=== PATIENT | female | born 2000 | race Caucasian/White ===

== ENCOUNTER 2021-03-21 08:23 | Emergency (ER) | payer BC, SELFPAY ==
[2021-03-21 09:31] VITALS: BP 110/71; PULSE 67; RESP 20; TEMP 36.5; O2SAT 100; BMI 29.9
[2021-03-21 11:48] VITALS: PULSE 72; O2SAT 100
[2021-03-21 11:49] VITALS: BP 126/75; PULSE 73; O2SAT 100
[2021-03-21 12:00] VITALS: PULSE 68; O2SAT 100
[2021-03-21 12:01] VITALS: BP 108/66; PULSE 70; O2SAT 100
[2021-03-21 12:30] VITALS: BP 102/56; PULSE 80; O2SAT 100
--- NOTE | 2021-03-21 13:30 | PC.NURSE ---
Patient has been concerned about herpes since november unable to get tested at that time. Told to be tested when she has another lesion. Patient denies sexual activity or unprotected sex since november. Tearful and worried
--- NOTE | 2021-03-21 13:37 | ED_ITS ---
HPI - Female Genitourinary <Baljit Barrera PA-C - Last Filed: 03/21/21 13:47> General Chief complaint: Urogenital-Female Stated complaint: Sores in genital areas Time Seen by Provider: 03/21/21 12:01 Source: patient Mode of arrival: Ambulatory Limitations: no limitations History of Present Illness HPI Narrative: 20-year-old female with past medical history seizures presents to the ED with 2 days of a general sore. Patient states that she had a prior episode of similar genital sores 4 months ago, and that the prior episode had multiple lesions. Patient was diagnosed with herpes, but was not tested for it. Patient states that this time around, she only has 1 sore on the labia, that it is very painful to touch. Patient describes it as a burning pain. Patient endorses unprotected sex about 4 months ago, spoke with her partners, who all denied any genital infections. Patient denies fever, chills, nausea, vomiting, vaginal discharge, foul smelling discharge. Patient has an IUD in. Related Data Previous Rx's Medication Instructions Recorded acyclovir 800 mg tablet 800 mg PO BID 5 Days #10 tab 03/21/21 Allergies Allergy/AdvReac Type Severity Reaction Status Date / Time No Known Drug Allergies Allergy Verified 03/21/21 09:30 Review of Systems <Baljit Barrera PA-C - Last Filed: 03/21/21 13:47> Constitutional Constitutional: Denies chills, Denies fatigue, Denies fever(s), Denies frequent falls, Denies lethargy and Denies weakness Eyes Eyes: Denies change in vision, Denies eye discharge, Denies irritation and Denies loss of vision ENT Ears, Nose, Mouth, and Throat: Denies change in voice, Denies dizziness, Denies neck pain, Denies sore throat and Denies throat swelling Cardiovascular Cardiovascular: Denies chest pain, Denies irregular heart rhythm, Denies lightheadedness, Denies palpitations, Denies dyspnea, Denies dyspnea on exertion and Denies orthopnea Respiratory Respiratory: Denies cough, Denies dyspnea, Denies dyspnea on exertion and Denies wheezing Gastrointestinal Gastrointestinal: Denies abdominal pain, Denies change in bowel habits, Denies diarrhea, Denies nausea and Denies vomiting Genitourinary Comments: Genital sore Musculoskeletal Musculoskeletal: Denies neck pain and Denies numbness Integumentary/Breasts Skin/Breast: Denies pruritus, Denies erythema, Denies rash and Denies wounds Neurologic Neurologic: Denies behavioral changes, Denies confusion, Denies dizziness, Denies frequent falls, Denies loss of vision, Denies numbness and Denies weakness Psychiatric Psychiatric: Denies anxiety, Denies behavioral changes, Denies confusion, Denies depression, Denies homicidal ideation and Denies suicidal ideation Endocrine Endocrine: Denies fatigue, Denies flushing and Denies palpitations Hematologic/Lymphatic Hematologic/Lymphatic: Denies easy bruising Allergic/Immunologic Allergic/Immunologic: Denies urticaria, Denies throat swelling and Denies wheezing Patient History <Baljit Barrera PA-C - Last Filed: 03/21/21 13:47> Medical History Seizures (~2019) Surgical History alcohol intake frequency: 0-2 drinks per day Substance Use Type: marijuana Exam <Baljit Barrera PA-C - Last Filed: 03/21/21 13:47> Initial Vital Signs Initial Vital Signs: Vital Signs Temperature 97.7 F 03/21/21 09:31 Pulse Rate 67 03/21/21 09:31 Respiratory Rate 20 03/21/21 09:31 Blood Pressure 110/71 03/21/21 09:31 Pulse Oximetry 100 03/21/21 09:31 Const General: cooperative HENMT Head: normocephalic and atraumatic Ears: external ears normal and TM's normal bilaterally Nose: external nose normal and No nasal discharge Face and sinus: sinuses nontender, face symmetric, no sinus tenderness and No dry mucous membranes Mouth: oral mucosae normal and moist mucous membranes Teeth and gingiva: dentition normal Throat: tonsils normal and uvula midline Eyes General: appearance normal, both eyes and all related structures Eyelids: eyelids normal Conjunctivae: conjunctivae normal Sclera: sclerae normal Pupils: PERRL EOM: EOM intact bilaterally Neck Neck: normal visual inspection, trachea midline, No lymphadenopathy, No midline deformity and No JVD Lymphatic: No lymphedema Chest Chest: normal inspection of the chest Resp Effort & Inspection: normal respiratory effort, able to speak in complete sentences, no respiratory distress and no use of accessory muscles Auscultation: clear to auscultation bilaterally, no rales, no rhonchi and no wheezes Cardio Rate: regular rate Rhythm: regular rhythm Heart Sounds: no click, no gallops, no murmurs and no rubs Pulses: normal peripheral pulses GI Inspection: non-distended Palpation: soft, no hepatosplenomegaly, No guarding, No pulsatile mass and No tender Auscultation: normal bowel sounds Other: Abdomen is soft, nondistended, nontender to palpation. General: bimanual renal exam normal bilaterally Speculum Exam - Cervix: normal appearance of the cervix Other: Solitary genital lesion on upper labia, ulcerated, depressed, tender to palpation. No discharge. Vaginal exam shows normal vagina without lacerations. Cervix normal, closed with IUD strings visualized. Normal white physiologic discharge. Bimanual exam with no cervical motion tenderness, adnexal masses or adnexal tednerness. Back/Spine/Pelvis Back: No CVA tenderness Cervical Spine: cervical ROM normal and No pain with cervical ROM Thoracic/Lumbar Spine: thoracic and lumbar spine normal to inspection Skin General: no rashes or lesions noted, No jaundice and No petechiae Neuro General: patient alert, patient oriented x3, gait normal and no focal motor deficits Speech: speech normal Extrem General: full ROM, no clubbing, cyanosis or edema, no pedal edema and no calf tenderness Psych Appearance: well kempt Mental Status: mental status grossly normal Attitude: cooperative Thought Content: normal and suicidality Judgment: judgment good <Tabby Medrano DO - Last Filed: 03/25/21 08:41> Initial Vital Signs Initial Vital Signs: Vital Signs Temperature 97.7 F 03/21/21 09:31 Pulse Rate 67 03/21/21 09:31 Respiratory Rate 20 03/21/21 09:31 Blood Pressure 110/71 03/21/21 09:31 Pulse Oximetry 100 03/21/21 09:31 Course <Baljit Barrera PA-C - Last Filed: 03/21/21 13:47> Orders Ordered: ED Orders 03/21/21 13:28 Herpes Simp Virus 1&2 IgG Stat Treponema pallidum Antibodies Stat 03/21/21 13:29 HIV 1 & 2 Ab/Ag 4th Gen Combo Stat 03/21/21 13:30 Chlamydia/Gonoc/Myco Genital Stat Vital Signs Vital signs: Vital Signs - 8 hr 03/21/21 09:31 03/21/21 11:48 03/21/21 11:49 Temperature 97.7 F Pulse Rate 67 72 73 Respiratory Rate 20 Blood Pressure 110/71 126/75 Pulse Oximetry 100 100 100 03/21/21 12:00 03/21/21 12:01 03/21/21 12:30 Temperature Pulse Rate 68 70 80 Respiratory Rate Blood Pressure 108/66 102/56 L Pulse Oximetry 100 100 100 <Tabby Medrano DO - Last Filed: 03/25/21 08:41> Orders Ordered: ED Orders 03/21/21 13:28 Herpes Simp Virus 1&2 IgG Stat Treponema pallidum Antibodies Stat 03/21/21 13:29 HIV 1 & 2 Ab/Ag 4th Gen Combo Stat 03/21/21 13:30 Chlamydia/Gonoc/Myco Genital Stat Vital Signs Vital signs: Vital Signs - 8 hr 03/21/21 09:31 03/21/21 11:48 03/21/21 11:49 Temperature 97.7 F Pulse Rate 67 72 73 Respiratory Rate 20 Blood Pressure 110/71 126/75 Pulse Oximetry 100 100 100 03/21/21 12:00 03/21/21 12:01 03/21/21 12:30 Temperature Pulse Rate 68 70 80 Respiratory Rate Blood Pressure 108/66 102/56 L Pulse Oximetry 100 100 100 MDM - Female Genitourinary <Baljit Barrear PA-C - Last Filed: 03/21/21 13:47> Medical Records Attestation: I reviewed the patient's medical records. Lab Data Attestation: I reviewed the patient's lab results. Lab results narrative: HCG negative, UA negative Labs: Lab Results 03/21/21 03/21/21 03/21/21 Range/Units 13:38 13:52 13:52 Treponema pallidum Ab Non reactive (Non Reactive) C.trachomatis Ampl DNA Negative (Negative) HSV I IgG Ab (Blot) < 0.91 (0.00-0.90) index HSV II IgG Ab (Blot) 6.43 H (0.00-0.90) index HIV 1&2 Ab/P24 Ag 4thGn (NEGATIVE) M. genitalium (PCR) Negative (Negative) N.gonorrhoeae Ampl DNA Negative (Negative) 03/21/21 Range/Units 13:52 Treponema pallidum Ab (Non Reactive) C.trachomatis Ampl DNA (Negative) HSV I IgG Ab (Blot) (0.00-0.90) index HSV II IgG Ab (Blot) (0.00-0.90) index HIV 1&2 Ab/P24 Ag 4thGn Negative (NEGATIVE) M. genitalium (PCR) (Negative) N.gonorrhoeae Ampl DNA (Negative) Point of Care Testing Test Results Negative Urine Dip Bedside Urine Glucose Negative Bedside Urine Bilirubin - Negative Bedside Urine Ketone - Negative Urine Specific [place] 1.025 Bedside Urine Occult Blood - Negative Bedside Urine pH 6.0 Bedside Urine Protein - Negative Bedside Urine Urobilinogen - Negative Bedside Urine Nitrite - Negative Bedside Urine Leukocytes - Negative Esterase MDM Narrative Medical decision making narrative: 20-year-old female with past medical history seizures presents to the ED with 2 days of a general sore. Patient states that she had a prior episode of similar genital sores 4 months ago, and that the prior episode had multiple lesions. Concern for genital herpes versus syphilis versus GC versus HIV. Will order tests for herpes, syphilis, HIV, GC. Will give a prescription for acyclovir, discharge home with PCP follow-up. Will call patient with results. <Tabby Medrano, - Last Filed: 03/25/21 08:41> Lab Data Labs: Lab Results 03/21/21 03/21/21 03/21/21 Range/Units 13:38 13:52 13:52 Treponema pallidum Ab Non reactive (Non Reactive) C.trachomatis Ampl DNA Negative (Negative) HSV I IgG Ab (Blot) < 0.91 (0.00-0.90) index HSV II IgG Ab (Blot) 6.43 H (0.00-0.90) index HIV 1&2 Ab/P24 Ag 4thGn (NEGATIVE) M. genitalium (PCR) Negative (Negative) N.gonorrhoeae Ampl DNA Negative (Negative) 03/21/21 Range/Units 13:52 Treponema pallidum Ab (Non Reactive) C.trachomatis Ampl DNA (Negative) HSV I IgG Ab (Blot) (0.00-0.90) index HSV II IgG Ab (Blot) (0.00-0.90) index HIV 1&2 Ab/P24 Ag 4thGn Negative (NEGATIVE) M. genitalium (PCR) (Negative) N.gonorrhoeae Ampl DNA (Negative) Point of Care Testing Test Results Negative Urine Dip Bedside Urine Glucose Negative Bedside Urine Bilirubin - Negative Bedside Urine Ketone - Negative Urine Specific [place] 1.025 Bedside Urine Occult Blood - Negative Bedside Urine pH 6.0 Bedside Urine Protein - Negative Bedside Urine Urobilinogen - Negative Bedside Urine Nitrite - Negative Bedside Urine Leukocytes - Negative Esterase Discharge Plan Departure Patient Disposition: Home Clinical Impression: Herpes genitalia Qualifiers: Herpes simplex infection site: vulvovaginitis Qualified Code(s): A60.04 - Herpesviral vulvovaginitis Instructions: Genital Herpes Activity Restrictions/Additional Instructions: You were evaluated for a genital sore today in the ED. Your symptoms are likely due to a herpes 2 infection. You can take acyclovir 800 mg by mouth every 12 hours for 5 days. Please avoid unprotected sexual intercourse. You were tested today for herpes, HIV, gonorrhea and chlamydia, syphilis. You will be notified of the results by phone. You can call us in the ED here if you do not hear within the next day. Follow-up with your primary care provider. Prescriptions: New acyclovir 800 mg tablet 800 mg PO BID 5 Days Qty: 10 RF: 0 <Tabby Medrano DO - Last Filed: 03/25/21 08:41> Cosign ED Attending Dave Attestation: I was immediately available in the department for consultation. Documentation has been reviewed. I agree with assessment and plan.
[2021-03-21 15:33] LABS: HIV 1 & 2 Ab/Ag 4th Gen Combo NEGATIVE (NEGATIVE)
[2021-03-22 07:44] LABS: HSV 2 IGG AB 6.43 index (0.00-0.90); HSV1IGG < 0.91 index (0.00-0.90)
[2021-03-22 15:15] LABS: Treponema pallidum Antibodies Non Reactive (Non Reactive)
[2021-03-23 09:08] LABS: Chlamydia trachomatis Negative (Negative); Mycoplasma genitalium Negative (Negative); Neisseria gonorrhoeae Negative (Negative)
== END 2021-03-21 13:54 | disposition home or self-care (01) ==
PROVIDERS: Emergency Provider Student in an Organized Health Care Education/Training Program
DX: A60.04 Herpesviral vulvovaginitis (principal)
CPT/HCPCS: 36415; 81003; 81025; 86695; 86696; 86780; 87389; 87491; 87563; 87591; 99283; 99284

== ENCOUNTER → 2021-08-11 17:29 | Outpatient (CLI) | payer BC, SELFPAY ==
[2021-08-11 20:28] LABS: COVID19 -Nasal RAPID Negative (Negative)
== END ==
PROVIDERS: Visit Provider Nurse Practitioner Family
DX: Z20.822 Contact with and (suspected) exposure to COVID-19 (principal); J02.9 Acute pharyngitis, unspecified
CPT/HCPCS: 87070; 87077; 87635

== ENCOUNTER 2021-08-23 11:54 | Emergency (ER) | payer OTHER, SELFPAY ==
[2021-08-23 12:02] VITALS: BP 129/78; PULSE 100; RESP 15; TEMP 36.9; O2SAT 97; BMI 28.3
--- NOTE | 2021-08-23 12:05 | DI.RAD.S_ITS ---
PROCEDURE: XR KNEE LT 3V INDICATIONS: knee pain after slipping TECHNIQUE: Three views of the knee were acquired. COMPARISON: None FINDINGS: Bones: No fractures or dislocations. No suspicious bony lesions. Soft tissues: No joint effusion. No suspicious soft tissue calcifications. IMPRESSION: Intact left knee. Dictated by: Carrol Zimmerman M.D. on 08/23/2021 at 12:52 Approved by: Carrol Zimmerman M.D. on 08/23/2021 at 12:54 PATIENT NAME: TIANNA MOBLEY : 2000 EXAM DATE: 08/23/2021 11:56 ORD. .: BAILEY JORDAN M.D. CC: ED TEMP MODALITY: CR PATIENT TYPE: ER CONTRAST MEDIA: STATION ID: [id number] FLUORO TIME: PATIENT NAME: TIANNA MOBLEYBarb : 2000 EXAM DATE: 08/23/2021 11:[address] BAILEY JORDAN M.D. CC: ED TEMP MODALITY: CR PATIENT TYPE: ER CONTRAST MEDIA: STATION ID: [id number] FLUORO TIME:
[2021-08-23 14:07] VITALS: BP 108/65; PULSE 64; O2SAT 100
--- NOTE | 2021-08-23 14:18 | ED.LOWEXIN ---
HPI - Extremity Injury (Lower) <Ezekiel Batres PA-C - Last Filed: 08/23/21 14:25> General Chief Complaint: Extremity Injury, Lower Stated Complaint: FELL AT WORK LEFT LEG AND LOWER BACK PAIN Time Seen by Provider: 08/23/21 14:14 Source: patient Mode of arrival: Ambulatory History of Present Illness HPI Narrative: Patient is a 21-year-old female who presents to the ED complaining of left knee pain. She works at [employer] and while she was at work she slipped on an olive and fell to the floor and she reports that her left knee twisted outward and she began to have severe pain in her left knee. She describes the pain to be both medially and laterally around the patella and that flexion and extension of the knee does increase the pain. She is able to weight bear although she is limited on toe-touch. No reported previous injury or previous issue with the knee. No other complaint reported incident happened earlier today Related Data Home Medications Medication Instructions Recorded Confirmed eslicarbazepine 400 mg tablet 400 mg PO DAILY 04/05/21 08/11/21 (Aptiom) levonorgestrel 20.1 mcg/24 hrs (6 INTRAUTERINE 04/05/21 08/11/21 yrs) 52 mg intrauterine device (Liletta) Previous Rx's Medication Instructions Recorded acyclovir 400 mg tablet 400 mg PO DAILY #90 tab 04/05/21 penicillin V potassium 500 mg 500 mg PO BID 10 Days #20 tab 08/15/21 tablet ibuprofen 800 mg tablet 800 mg PO Q8H PRN #21 tab 08/23/21 Allergies Allergy/AdvReac Type Severity Reaction Status Date / Time No Known Drug Allergies Allergy Verified 08/11/21 17:28 Review of Systems <Ezekiel Batres PA-C - Last Filed: 08/23/21 14:25> Review of Systems ROS Unobtainable: All systems reviewed & are unremarkable except as noted in HPI and below Constitutional Constitutional: Denies chills, Denies fatigue, Denies fever(s), Denies frequent falls, Denies lethargy and Denies weakness Eyes Eyes: Denies change in vision, Denies eye discharge, Denies irritation and Denies loss of vision ENT Ears, Nose, Mouth, and Throat: Denies change in voice, Denies dizziness, Denies neck pain, Denies sore throat and Denies throat swelling Cardiovascular Cardiovascular: Denies chest pain, Denies irregular heart rhythm, Denies lightheadedness, Denies palpitations, Denies dyspnea, Denies dyspnea on exertion and Denies orthopnea Respiratory Respiratory: Denies cough, Denies dyspnea, Denies dyspnea on exertion and Denies wheezing Gastrointestinal Gastrointestinal: Denies abdominal pain, Denies change in bowel habits, Denies diarrhea, Denies nausea and Denies vomiting Genitourinary Genitourinary: Denies hematuria, Denies flank pain, Denies urinary incontinence and Denies urinary urgency Musculoskeletal Musculoskeletal: Reports arthralgias, Denies back pain, Denies muscle weakness, Denies neck pain, Denies numbness and Denies tingling Integumentary/Breasts Skin/Breast: Denies pruritus, Denies erythema, Denies rash and Denies wounds Neurologic Neurologic: Denies behavioral changes, Denies confusion, Denies dizziness, Denies frequent falls, Denies loss of vision, Denies numbness, Denies tingling and Denies weakness Psychiatric Psychiatric: Denies anxiety, Denies behavioral changes, Denies confusion, Denies depression, Denies homicidal ideation and Denies suicidal ideation Endocrine Endocrine: Denies fatigue, Denies flushing and Denies palpitations Hematologic/Lymphatic Hematologic/Lymphatic: Denies easy bruising Allergic/Immunologic Allergic/Immunologic: Denies urticaria, Denies throat swelling and Denies wheezing Patient History <Ezekiel Batres PA-C - Last Filed: 08/23/21 14:25> Medical History Seizures (~2019) Surgical History Social History Smoking Status: Current every day smoker Smoking Status: Current every day smoker tobacco type: vaping alcohol intake frequency: 3 or more drinks per day Substance Use Type: marijuana Exam <Ezekiel Batres PA-C - Last Filed: 08/23/21 14:25> Initial Vital Signs Initial Vital Signs: Vital Signs Temperature 98.4 F 08/23/21 12:02 Pulse Rate 100 H 08/23/21 12:02 Respiratory Rate 15 08/23/21 12:02 Blood Pressure 129/78 08/23/21 12:02 Pulse Oximetry 97 08/23/21 12:02 Const General: cooperative, healthy appearing and comfortable Nutritional Appearance: average body habitus Extrem Left lower extremity: normal to inspection and knee Details: tenderness Location: of the medial joint line and of the lateral joint line and abnormal ROM Details: pain with active ROM <DO Sanju Lane Last Filed: 08/23/21 14:31> Initial Vital Signs Initial Vital Signs: Vital Signs Temperature 98.4 F 08/23/21 12:02 Pulse Rate 100 H 08/23/21 12:02 Respiratory Rate 15 08/23/21 12:02 Blood Pressure 129/78 08/23/21 12:02 Pulse Oximetry 97 08/23/21 12:02 Course <ELIANE Meng Last Filed: 08/23/21 14:25> Orders Ordered: ED Orders 08/23/21 12:05 XR knee LT 3V Stat Vital Signs Vital signs: Vital Signs - 8 hr 08/23/21 12:02 08/23/21 14:07 Temperature 98.4 F Pulse Rate 100 H 64 Respiratory Rate 15 Blood Pressure 129/78 108/65 Pulse Oximetry 97 [address] <[address] Last Filed: 08/23/21 14:31> Orders Ordered: ED Orders 08/23/21 12:05 XR knee LT 3V Stat Vital Signs Vital signs: Vital Signs - 8 hr 08/23/21 12:02 08/23/21 14:07 Temperature 98.4 F Pulse Rate 100 H 64 Respiratory Rate 15 Blood Pressure 129/78 108/65 Pulse Oximetry 97 100 MDM - Extremity Injury (Lower) <ELIANE Meng Last Filed: 08/23/21 14:25> Differential Diagnosis Differential diagnosis: Likely acute internal derangement of knee Imaging Data Extremity x-ray #1: Radiologist's Impression: [address] [address] XRay Report Signed Patient: Tianna Zayas MR#: [id number] : 2000 Acct:[id number] Age/Sex: 21 / F Date of Service: 08/23/21 Loc: ED Accession Number: [id number] ?? Procedure: XR knee LT 3V Ordering Provider: Rodney Phillip D.O. PROCEDURE:? XR KNEE LT 3V ? INDICATIONS:? knee pain after slipping ? TECHNIQUE:? Three views of the knee were acquired.? ? COMPARISON:? None ? FINDINGS:? ? Bones:? No fractures or dislocations.? No suspicious bony lesions.? ? Soft tissues:? No joint effusion.? No suspicious soft tissue calcifications.? ? ? IMPRESSION:? Intact left knee. ? ? Dictated by: Carrol Zimmerman M.D. on 08/23/2021 at 12:52? ? Approved by: Carrol Zimmerman M.D. on 08/23/2021 at 12:54 ? PATIENT NAME:? TIANNA ZAYASBarb :? 2000 MRN:? [id number] ACCOUNT #: ? [id number] ACCESSION#:? [id number] EXAM DATE: 08/23/2021 ? 11:56 ORD. DRBarb:? RODNEY PHILLIP M.D. CC: ED TEMP? ? MODALITY: CR PATIENT TYPE: ER CONTRAST MEDIA:?? STATION ID: [id number] FLUORO TIME:? PATIENT NAME:? TIANNA ZAYASBarb :? 2000 MRN:? [id number] ACCOUNT #: ? [id number] ACCESSION#:? [id number] EXAM DATE: 08/23/2021 ? 11:56 ORD. DRBarb:? RODNEY PHILLIP M.D. CC: ED TEMP? ? MODALITY: CR PATIENT TYPE: ER CONTRAST MEDIA:?? STATION ID: [id number] FLUORO TIME:? ? ? MDM Narrative Medical decision making narrative: Patient was evaluated today for left knee pain that resulted from a fall at work. Advised her that we ruled out fracture today with the x-ray however it is difficult to assess all the internal structures within the knee. I recommended ice and anti-inflammatories and weight-bearing as tolerated should be limited on her return to work based on her symptoms. She will be discharged home and she can follow up with her PCP Discharge Plan Departure Patient Disposition: Home Clinical Impression: Acute knee pain Instructions: DI for Knee Pain Activity Restrictions/Additional Instructions: You were seen today for pain in your left knee. The x-ray of the left knee did not show any evidence of fracture however we will have to monitor your symptoms at this point I would recommend rest ice take anti-inflammatories as prescribed and weight-bearing as tolerated. If your pain improves he may return to work without any restrictions if you have ongoing pain beyond a week I probably would recommend follow-up to have an MRI of her left knee. Thank you for the opportunity to treat today Prescriptions: New ibuprofen 800 mg tablet 800 mg PO Q8H PRN (Reason: pain) Qty: 21 0RF No Action penicillin V potassium 500 mg tablet 500 mg PO BID 10 Days Qty: 20 0RF Liletta 20.1 mcg/24 hrs (6 yrs) 52 mg intrauterine device intrauterine 0RF Aptiom 400 mg tablet 400 mg PO DAILY 0RF acyclovir 400 mg tablet 400 mg PO DAILY Qty: 90 3RF <Rodney Phillip, DO - Last Filed: 08/23/21 14:31> Cosign ED Attending Cosignature Attestation: Dr Phillip Co-Sign Statement: I was available for consultation during this patient's emergency department visit. This chart is signed by myself for administrative purposes only. I did not have direct contact with this patient during this visit. They were seen independently by the APC.
== END 2021-08-23 14:38 | disposition home or self-care (01) ==
PROVIDERS: Emergency Provider Physician Assistant
DX: M25.562 Pain in left knee (principal); F17.290 Nicotine dependence, other tobacco product, uncomplicated; W01.0XXA Fall on same level from slipping, tripping and stumbling without subsequent striking against object, initial encounter; Y92.89 Other specified places as the place of occurrence of the external cause; Y99.0 Civilian activity done for income or pay
CPT/HCPCS: 73562; 99281; 99283